=== PATIENT | female | born 1950 | race Caucasian/White ===

== ENCOUNTER 2024-03-23 06:52 | Emergency (ER) | payer MEDICARE ==
[~2024-03-23] VITALS: Ht 162.6 cm; Wt 81.6 kg
[~2024-03-23 06:52] MED LIST: EPIDRIN PO
[2024-03-23 06:55] VITALS: BP_SYST 109; PULSE 64; RESP 24; TEMP 98.6; O2SAT 99
[2024-03-23] MEDS ORDERED: LORazepam 2 MG/ML VIAL ONE (07:38)
[2024-03-23] MEDS ORDERED: ONDANSETRON HCL 4 MG/2 ML VIAL ONE (07:39)
[2024-03-23 08:04] LABS: BASOPHILS % (AUTO) 0.3 % (0.0-2.0); EOSINOPHILS # (AUTO) 0.4 K/uL (0.0-0.4); EOSINOPHILS % (AUTO) 4.3 % (0.0-4.0); HEMATOCRIT 38.2 % (36-48); HEMOGLOBIN 13.7 g/dL (12.0-16.0); LYMPHOCYTES # (AUTO) 4.8 K/uL (1.0-5.5); LYMPHOCYTES % (AUTO) 58.2 % (20.5-51.5); MEAN CORPUSCULAR HEMOGLOBIN 33 pg (27-31); MEAN CORPUSCULAR HGB CONC 36 % (32-36); MEAN CORPUSCULAR VOLUME 92 fL (79.0-98.0); MONOCYTES # (AUTO) 0.7 K/uL (0.0-1.0); MONOCYTES % (AUTO) 8.4 % (1.7-9.3); NEUTROPHILS # (AUTO) 2.4 K/uL (1.8-7.7); NEUTROPHILS % (AUTO) 28.8 % (40.0-70.0); PLATELET COUNT (AUTO) 291 K/uL (130-430); RED BLOOD CELL COUNT(AUTO) 4.16 MIL/uL (4.2-6.2); WHITE BLOOD COUNT (AUTO) 8.2 K/uL (4.8-10.8)
[2024-03-23 08:15] LABS: ANION GAP 17 (5-15); CALCIUM 9.3 mg/dL (8.4-11.0); CARBON DIOXIDE 20 mmol/L (23-29); CHLORIDE 104 mmol/L (98-107); CREATININE 0.83 mg/dL (0.55-1.30); GLUCOSE 179 mg/dL (74-106); POTASSIUM 3.3 mmol/L (3.5-5.1); SODIUM SERUM 141 mmol/L (136-145); UREA NITROGEN, BLOOD 8 mg/dL (8-21)
[2024-03-23] MEDS: LORazepam 2 MG/ML VIAL IVP ONE (08:15)
[2024-03-23] MEDS: ONDANSETRON HCL 4 MG/2 ML VIAL IVP ONE (08:15)
[2024-03-23] MEDS: MECLIZINE HCL 25 MG TABLET (ANITVERT) PO ONE (08:23)
[2024-03-23] MEDS ORDERED: iohexoL 350 mgI/mL, 100 ML INFUS..BTL IV ONE (08:42)
[2024-03-23 12:19] VITALS: BP_SYST 148; PULSE 64; RESP 15; TEMP 97.2; O2SAT 96
== END 2024-03-23 12:10 | disposition short-term general hospital (02) ==
LOC: SED 06:52
DX: R42 Dizziness and giddiness (principal); R11.2 Nausea with vomiting, unspecified; I10 Essential (primary) hypertension
CPT/HCPCS: 99291; 70496; 96374; 71045; 96375; 80048; 85025; 84484; 36415; 93005; 70498; 82948; 70450; Q9967; J2060; J2405; J8597